=== PATIENT | female | born 1985 | race Caucasian/White ===

== ENCOUNTER 2024-11-14 09:18 | Emergency (ER) | payer OTHER, SELFPAY ==
[2024-11-14 09:26] VITALS: BP 147/96
[2024-11-14 09:58] VITALS: BP 120/80
[2024-11-14 10:00] VITALS: BP 118/79
--- NOTE | 2024-11-14 10:26 | ED.GENMED ---
History of Present Illness
General
Chief Complaint: Heart Rate Problem
Time Seen by Provider: 11/14/24 10:10
History of Present Illness
History of Present Illness:
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 Ongoing
since yesterday. No exertional symptoms. Denies any fevers, chills, sweats, nausea, vomiting, or diarrhea. She is on exogenous estrogen. Denies any calf pain or tenderness. No recent immobilization or surgeries. No recent illnesses within the
past month. No known history of precocious coronary disease
Past History
Past History
ED Past Medical History: Other
ED Past Surgical History: None (Occasional tachycardia )
Social History
Tobacco: Non-smoker
Alcohol: Occasional
Drug: None
Personal:
Living: with family
Employment: Employed
Review of Systems
Review of Systems
Allergies reviewed?: Yes
All Other Systems: ROS reviewed and negative except as documented in HPI and ROS
Phy Exam
Physical Exam
Physical Exam:
GEN: Well appearing, NAD, WDWN
HEENT: Oral mucosa moist, no scleral icterus
Cardiac: Regular rate and rhythm, no murmur
Lung: No respiratory distress, no tachypnea, Lungs clear to auscultation bilaterally
MSK: No gross deformity or injuries
Skin: Good color, no pallor or jaundice, no rashes
Neuro: AO x3, moves all extremities freely
Psych: Calm, cooperative
Course
Orders/Labs/Results
Orders:
Orders
11/14/24 09:21
Electrocardiogram (*1) Urgent
Reason for Study: Chest Pain
EKG- Treatment ONCE
11/14/24 10:12
Test Result ONCE
11/14/24 10:21
Complete Blood Count/With Diff Urgent
Comprehensive Metabolic Panel Urgent
HCG, Serum Qualitative Screen Urgent
TSH Reflex To Free T4 Urgent
Troponin I Urgent
11/14/24 10:24
D-Dimer Urgent
11/14/24 11:13
Add On- LAB Urgent
Tests Added?: TSH with reflex
11/14/24 11:17
CR Chest - 2 Views Urgent
Comment:
Reason For Exam: chest pain
Abnormal Lab Results
11/14/24
10:21
WBC 4.6 L 10^3/uL
(4.8-10.8)
MPV 11.3 H fL
(7.4-10.4)
BUN 19 H mg/dl
(7-17)
11/14/24 10:21
11/14/24 10:21
Vital Signs
Initial and Last Documented VS:
Initial Vital Signs
Temp Pulse Resp BP Pulse Ox
98.1 F 95 16 147/96 100
11/14/24 09:26 11/14/24 09:26 11/14/24 09:26 11/14/24 09:26 11/14/24 09:26
Last Documented Vital Signs
Temp Pulse Resp BP Pulse Ox
98.1 F 72 14 120/78 99
11/14/24 09:26 11/14/24 11:45 11/14/24 11:45 11/14/24 11:00 11/14/24 11:45
MDM/Problems Addressed
MDM/Problems Addressed:
Patient's workup is reassuring. She did have a single PVC or PAC noted on telemetry that correlated with her symptoms however no further events were noted. D-dimer was sent due to patient's use of exogenous estrogen and this was reassuring and
negative.
*Critical Care Note
Total Time (30-74mins, 75-104mins- exclusive of procedures): Not Applicable
ED Attending Note
-
Portions of this chart may have been created with voice recognition software.� Occasional wrong word or��sound alike� substitutions may have occurred due to the inherent limitations of voice recognition software.
Discharge Plan
Departure
Patient Disposition: Home (Routine Discharge)
Date of Disposition: 11/14/24
Time of Disposition: 12:15
Patient with high blood pressure during this ER visit?: No
Discharge Problem:
Atypical chest pain, PAC (premature atrial contraction)
Instructions: Chest Pain PCP Follow Up
Prescriptions:
No Action
norgestimate-ethinyl estradiol [Ortho Tri-Cyclen LO (28)] 0.18/0.215/0.25 mg-25 mcg tablet
1 tab PO DAILY
Referrals:
Samara Hatch CRNP [Family Provider] -
Activity Restrictions/Additional Instructions:
Your test results are all normal however if your symptoms persist for more than 5-7 days, follow up with your primary doctor
Interventions
Interventions:
*Risk Screen - Suicide Last Done: 11/14/24 10:27
*General Assessment Last Done: 11/14/24 10:27
*Neglect/Abuse Screening Last Done: 11/14/24 11:14
*ED- Fall Risk Assessment Last Done: 11/14/24 11:00
*ED COVID-19 Vaccine History Last Done: 11/14/24 10:27
*Nursing Disposition Last Done: 11/14/24 12:33
ED- Cardiac Assessment Last Done: 11/14/24 10:27
ED- Pulmonary Assessment Last Done: 11/14/24 10:27
Discharge Date and Time
Discharge Date/Time: 11/14/24 12:34
Print Language: SPANISH
[2024-11-14 10:27] VITALS: BMI 32.9
[2024-11-14 10:34] LABS: % Basophils 0.4 % (0-2); % Eosinophils 1.1 % (0-6); % Immature Granulocytes 0.4 % (0-0.5); % Lymphocytes 29.8 % (20.5-51.1); % Monocytes 7.5 % (1.7-9.3); % Neutrophils 60.8 % (42.2-75.2); Absolute Eosinophils 0.1 10^3/uL (0-0.7); Absolute Lymphocytes 1.4 10^3/uL (1.2-3.4); Absolute Monocytes 0.3 10^3/uL (0.1-0.6); Absolute Neutrophils 2.8 10^3/uL (1.4-6.5); Hematocrit 40.3 % (37.0-47.0); Hemoglobin 13.8 g/dL (12.0-16.0); Mean Corp Hgb Conc. 34.2 g/dL (33.0-37.0); Mean Corpuscular Hgb 30.1 pg (27.0-31.0); Mean Platelet Volume 11.3 fL (7.4-10.4); Nucleated Red Blood Cells % 0 %; Platelet Count 221 10^3/uL (130-400); Red Blood Cell Count 4.58 10^6/uL (4.20-5.40); Red Cell Dist. Width 13.3 % (11.5-14.5); White Blood Cell Count 4.6 10^3/uL (4.8-10.8)
[2024-11-14 10:44] LABS: HCG, Serum Qualitative Screen Negative
[2024-11-14 10:52] LABS: ALT (SGPT) 19 U/L (0-35); AST (SGOT) 19 U/L (14-36); Alkaline Phosphatase 63 U/L (38-126); Blood Urea Nitrogen 19 mg/dl (7-17); Calcium 9.2 mg/dl (8.4-10.2); Carbon Dioxide 30 mmol/L (22-30); Chloride 106 mmol/L (98-107); Estimated Creatinine Clearance > 125 ml/min; Glucose 99 mg/dl (70-99); Potassium 3.9 mmol/L (3.5-5.1); Sodium 139 mmol/L (135-145); Total Bilirubin 0.8 mg/dl (0.2-1.3); Total Protein 6.7 g/dl (6.3-8.2); eGFR > 60.00
[2024-11-14 10:53] LABS: D-Dimer 0.29 ug/mlFEU (0.00-0.50)
[2024-11-14 11:00] VITALS: BP 120/78
[2024-11-14 11:03] LABS: Troponin I < 0.012 ng/ml
[2024-11-14 12:07] LABS: TSH Reflex To Free T4 2.79 uIU/ml (0.47-4.68)
== END 2024-11-14 12:34 | disposition home or self-care (01) ==
LOC: EMR 09:18
PROVIDERS: Physician Assistant; EMERGENCY PHYSICIAN Emergency Medicine; FAMILY PHYSICIAN Nurse Practitioner Family
DX: R07.89 Other chest pain (principal); I49.1 Atrial premature depolarization; Z90.722 Acquired absence of ovaries, bilateral; Z90.710 Acquired absence of both cervix and uterus
CPT/HCPCS: 99285; 71046; 80053; 84443; 84484; 84703; 85025; 85379; 93005